=== PATIENT | male | born 1965 | race Caucasian/White ===

== ENCOUNTER 2017-11-29 13:56 | Emergency (ER) | payer MEDICAID ==
[~2017-11-29] VITALS: Ht 182.9 cm; Wt 121.0 kg
[2017-11-29 14:20] VITALS: BP 161/83
[2017-11-29] MEDS ORDERED: PLEASE ENTER HEIGHT AND WEIGHT MC SCH (14:30)
[2017-11-29] MEDS ORDERED: PLEASE ENTER ALLERGIES MC SCH (14:30)
[2017-11-29] MEDS ORDERED: DIPH,PERTUSS(ACELL),TET VAC/PF 0.5 ML IM-VACC ONE ×2 (14:30→14:41)
[2017-11-29] MEDS ORDERED: CEFTRIAXONE 1,000 MG ONE (14:49)
[2017-11-29] MEDS ORDERED: HYDROcodone/APAP 5/325 TABLET ONE (14:53)
[2017-11-29] MEDS ORDERED: HYDROcodone/APAP 5/325 TABLET PO ONE (15:00)
[2017-11-29] MEDS ORDERED: CEFTRIAXONE 1,000 MG IM ONE (15:00)
== END 2017-11-29 15:11 | disposition home or self-care (01) ==
LOC: ED 14:45
DX: L03.115 Cellulitis of right lower limb (principal)
CPT/HCPCS: 90471; 90715; 96372; 99284; J0696

== ENCOUNTER 2017-12-31 08:30 | Emergency (ER) | payer MEDICAID ==
[~2017-12-31] VITALS: Ht 182.9 cm; Wt 121.0 kg
[2017-12-31 08:32] VITALS: BP 140/89
== END 2017-12-31 09:29 | disposition home or self-care (01) ==
LOC: ED 09:23
DX: L03.221 Cellulitis of neck (principal); E11.9 Type 2 diabetes mellitus without complications; I10 Essential (primary) hypertension; I25.2 Old myocardial infarction
CPT/HCPCS: 99283

== ENCOUNTER 2018-12-30 14:20 | Emergency (ER) | payer MEDICAID ==
[~2018-12-30] VITALS: Ht 182.9 cm; Wt 121.6 kg
--- NOTE | 2018-12-30 14:59 | NUR ---
NA X1
[2018-12-30] MEDS ORDERED: SODIUM CHLORIDE FLUSH 10ML SYR IVF ONE (15:30)
[2018-12-30 15:52] LABS: BASOPHILS # (AUTO) 0.05 x10^3/uL (0-0.1); BASOPHILS % (AUTO) 1 % (0-1); EOSINOPHILS # (AUTO) 0.03 x10^3/uL (0-0.4); EOSINOPHILS % (AUTO) 0 % (1-7); LYMPHOCYTES # (AUTO) 1.74 x10^3/uL (1-3.4); LYMPHOCYTES % (AUTO) 28 % (22-44); MD NO; MEAN CORPUSCULAR HEMOGLOBIN 31.3 pg (27.5-34.5); MEAN CORPUSCULAR HGB CONC 33.5 g/dL (33.2-36.2); MEAN CORPUSCULAR VOLUME 93.4 fL (81-97); MEAN PLATELET VOLUME 9.3 fL (7.4-10.4); MONOCYTES # (AUTO) 0.62 x10^3/uL (0.2-0.8); MONOCYTES % (AUTO) 10 % (2-9); NEUTROPHILS # (AUTO) 3.83 x10^3/uL (1.8-6.8); NEUTROPHILS % (AUTO) 61 % (42-75); PLATELET COUNT 102 x10^3/uL (130-400); RED BLOOD COUNT 5.45 x10^6/uL (4.38-5.82); RED CELL DISTRIBUTION WIDTH 12.7 % (9.4-14.8)
--- NOTE | 2018-12-30 16:03 | NUR ---
PATIENT PRESENTS TO ED TODAY FOR HIGH BLOOD SUGARS AT HOME FOR 3 DAYS (620), ALSO REPORTS GLF, DENIES LOC, REPORTS HITTING HEAD, DENIES HEAD PAIN AT THIS TIME, C/O OF LEFT SHOULDER PAIN. A+OX4, SKIN WARM, PINK, DRY. COTTON CHOPPER ON PATIENT, AWAITING MD ORDERS, CALL LIGHT WITHIN REACH.
[2018-12-30 16:10] LABS: ALBUMIN 2.8 g/dL (3.4-5.0); ANION GAP 6 mmol/L (5-15); CALCIUM 8.1 mg/dL (8.5-10.1); CHLORIDE 100 mmol/L (98-107)
[2018-12-30 16:14] LABS: ALANINE AMINOTRANSFERASE 62 U/L (12-78); ALKALINE PHOSPHATASE 213 U/L (45-117); BILIRUBIN,TOTAL 0.7 mg/dL (0.2-1.0); CREATININE 1.51 mg/dL (0.7-1.3)
--- NOTE | 2018-12-30 16:19 | NUR ---
PATIENT RESTING IN GURNEY, INTERMITTENTLY SLEEPING, RESP EVEN/UNLABORED, RESPONDS TO VERBAL STIMULI, VS UPDATED IN CHART, AWAITING RESULTS. JUAN JOSE.
[2018-12-30 16:28] LABS: ACETONE, SERUM Negative (Negative)
[2018-12-30] MEDS ORDERED: SODIUM CHLORIDE 0.9% 1,000ML IVBOLUS ONE (16:30)
[2018-12-30] MEDS ORDERED: INSULIN REGULAR 100 UNITS/ML, 3ML VIAL SQ-INSULIN ONE (16:30)
--- NOTE | 2018-12-30 16:44 | NUR ---
PATIENT AMB WITH STEADY GAIT TO BATHROOM, NADN.
--- NOTE | 2018-12-30 16:53 | NUR ---
UA COLLECTED AND SENT TO LAB.
[2018-12-30] MEDS ORDERED: INSULIN SINGLE DOSE, ER SQ-INSULIN ONE (16:56)
--- NOTE | 2018-12-30 17:06 | NUR ---
IVF AND INSULIN ADMINISTERED PER MAR, VERIFIED WITH SECOND RN, GLENROY. PATIENT ANXIOUS, SITTING IN [facility], ON PHONE, JUAN JOSE, AWAITING UA RESULTS.
--- NOTE | 2018-12-30 17:10 | NUR ---
MD AWARE OF PATIENT BEING ANXIOUS, PATIENT REPORTS A LOT OF STRESS IN HIS LIFE, MD TO ORDER ATIVAN.
[2018-12-30] MEDS ORDERED: LORazepam 2 MG/ML, 1ML ONE (17:15)
[2018-12-30 17:16] LABS: MICROSCOPIC NOT IND
[2018-12-30 17:30] LABS: CULTURE INDICATED? NO
[2018-12-30] MEDS ORDERED: LORazepam 2 MG/ML, 1ML IVPush ONE (17:30)
--- NOTE | 2018-12-30 18:12 | NUR ---
[id number], PATIENT'S CHART UP FOR RECHECK. PATIENT DANGLING ON THE SIDE OF THE GURNEY, SPEAKING TO FAMILY/FRIEND AT BEDSIDE. AWAITING FURTHER ORDERS. NO ADDITIONAL NEEDS AT THIS TIME.
--- NOTE | 2018-12-30 18:26 | NUR ---
MD AWARE OF DC BP, OKAY TO BE DC'D.
[2018-12-30 18:27] VITALS: BP 160/106
== END 2018-12-30 18:28 ==
LOC: ED 18:22
DX: E10.65 Type 1 diabetes mellitus with hyperglycemia (principal); R19.7 Diarrhea, unspecified; I48.91 Unspecified atrial fibrillation; I25.2 Old myocardial infarction; I10 Essential (primary) hypertension
CPT/HCPCS: 36415; 71046; 73030; 80053; 81003; 82010; 82800; 82962; 85025; 93005; 96361; 96372; 96374; 99284; J1815; J2060; J7030